=== PATIENT | female | born 1960 ===

== ENCOUNTER 2016-07-14 21:21 | Inpatient (IN) | payer OTHER ==
[~2016-07-14] VITALS: Ht 162.6 cm; Wt 67.8 kg
[2016-07-15] VITALS (12 sets, daily range): BP systolic 94–118; BP diastolic 47–75; PULSE 63–86; RESP 18–20; Ht 162.6 cm; Wt 67.8 kg
[2016-07-15] MEDS ORDERED: NITROGLYCERIN (SL) 0.4 MG TAB SL PRN
[2016-07-15] MEDS ORDERED: morphine 4 MG/ML VIAL IV PRN
[2016-07-15] MEDS ORDERED: morphine 2 MG INJ IV PRN
[2016-07-15 01:27] LABS: CREATINE KINASE 188 IU/L (23-200)
[2016-07-15 01:41] LABS: TROPONIN-I < 0.012 ng/ml (0.00-0.12)
[2016-07-15 07:59] LABS: BASOPHILS % 0.7 % (0.0-2.0); EOSINOPHILS # 0.2 10^3/ul (0.0-0.5); EOSINOPHILS % 3.7 % (0.0-7.0); HEMATOCRIT 38.9 % (37.0-47.0); HEMOGLOBIN 13.1 g/dl (12.0-16.0); LYMPHOCYTES # 2.2 10^3/ul (0.8-2.9); LYMPHOCYTES % 34.8 % (15.0-51.0); MEAN CORPUSCULAR HEMOGLOBIN 32.4 pg (29.0-33.0); MEAN CORPUSCULAR HGB CONC 33.6 g/dl (32.0-37.0); MEAN CORPUSCULAR VOLUME 96.6 fl (82.0-101.0); MEAN PLATELET VOLUME 9.7 fl (7.4-10.4); MONOCYTE # 0.5 10^3/ul (0.3-0.9); MONOCYTES % 7.9 % (0.0-11.0); NEUTROPHIL # 3.4 10^3/ul (1.6-7.5); NEUTROPHILS % 52.9 % (39.0-77.0); PLATELET COUNT 223 10^3/UL (140-440); RED BLOOD COUNT 4.03 10^6/ul (4.20-5.40); RED CELL DISTRIBUTION WIDTH 13.3 % (11.5-14.5); UNCORRECTED WBC 6.4 10^3/ul (4.8-10.8); WHITE BLOOD COUNT 6.4 10^3/ul (4.8-10.8)
[2016-07-15 08:18] LABS: CONDITION 1
[2016-07-15 08:19] LABS: ALBUMIN 3.8 g/dl (3.3-4.9)
[2016-07-15 08:20] LABS: POTASSIUM 4.3 mmol/L (3.5-5.1)
[2016-07-15 08:22] LABS: ALBUMIN/GLOBULIN RATIO 1.26; BILIRUBIN,INDIRECT 0.2 mg/dl (0-1.1); BILIRUBIN,TOTAL 0.2 mg/dl (0.2-1.3); CREATININE 0.75 mg/dl (0.44-1.00); TOTAL PROTEIN 6.8 g/dl (6.1-8.1)
[2016-07-15 08:23] LABS: CALCIUM 9.2 mg/dl (8.4-10.2); CHOL/HDL RATIO 4.6 RATIO
[2016-07-15 08:40] LABS: THYROID STIMULATING HORMONE 7.2 MIU/L (0.465-4.680)
[2016-07-15] MEDS: ENOXAPARIN 40 MG/0.4 ML SYG SC SCH (09:00)
[2016-07-15] MEDS: ASPIRIN 81 MG TAB PO SCH (09:00)
[2016-07-15 09:36] LABS: CREATINE KINASE 158 IU/L (23-200)
[2016-07-15 09:46] LABS: CK-MB 1.06 ng/ml (0.0-2.4)
[2016-07-15 09:51] LABS: TROPONIN-I < 0.012 ng/ml (0.00-0.12)
--- NOTE | 2016-07-15 11:52 | RADRPT ---
PROCEDURE: Carotid ultrasound CLINICAL INDICATION: Syncope, carotid bruits TECHNIQUE: Fuentes scale, color doppler, spectral doppler ultrasound of the bilateral carotid and bairon tebral arteries. This study indirectly references the measurement of the distal ICA diameter as the denominator for s tenosis measurement. Validated velocity measurements with angiographic measurements, velocity criter ia are extrapolated from diameter data as defined by: *Cartoid artery stenosis: fuentes-scale and Doppl er US diagnosis. Society of Radiologists in Ultrasound Consensus Conference. Radiology 2003; 229: 34 0-346. SRU Consensus Conference Criteria for the Diagnosis of Carotid Artery Stenosis* Degree of Stenosis, % ICA PSV, cm/sec Plaque Estimate, % ICA/CCA PSV Ratio Normal <125 None <2.0 <50 <125 <50 <2.0 50 69 125-230 >50 2.0-4.0 >70 but less than near occlusion >230 >50 <4.0 Near occlusion High, low, or undetectable Visible Variable Total occlusion Undetectable Visible, no detectable lumen Not applicable COMPARISON: No prior studies are available for comparison. FINDINGS: Location Right MWH407 cm/sec Prox ICA 98 cm/sec Mid ICA89 cm/sec Dist HCC729 cm/sec ECA75 cm/sec ICA/CCA Left KOF030 cm/sec Prox ICA 94 cm/sec Mid MOU331 cm/sec Dist UHI011 cm/sec ECA84 cm/sec ICA/CCA1.0 Plaque burden: A minimal amount of plaque is present within the visualized portions of both internal carotid arteries however there is no evidence of flow acceleration to suggest a hemodynamically sig nificant stenosis. Antegrade flow is seen within the vertebral arteries bilaterally. IMPRESSION: No evidence of a hemodynamically significant carotid stenosis. RPTAT: AADD .Puma Laboy MD, MD Date Time Electronically viewed and signed by .Puma Laboy MD, on 07/15/2016 11:52 .B/
[2016-07-15] MEDS ORDERED: LORAZEPAM 2 MG INJ IV ONE (13:00)
--- NOTE | 2016-07-15 14:08 | HP ---
DATE OF ADMISSION: 07/14/2016 CHIEF COMPLAINT: Chest pain and shortness of breath. HISTORY OF PRESENT ILLNESS: The patient is a 55-year-old female who history who initially pre sented at [facility] with chief complaint of chest pain. She also reporte d shortness of breath and dry cough. She was transferred here to [facility] for insurance reasons. Chest pain is midsternal and also left side with radiation to the left shoulder and arm. She denied any associated nausea, vomiting or diaphoresis. The first troponin was negative at [place] and EKG did not show any ST-T wave abnormality. REVIEW OF SYSTEMS: ALLERGIES: NO KNOWN DRUG ALLERGIES. FAMILY HISTORY: PHYSICAL EXAMINATION: LABORATORY: First troponin negative. IMPRESSION: 1. Chest pain, rule out . 2. Shortness of breath. 3. ____. 4. Cough. PLAN: 1. Obtain . troponin. To be placed on oxygen, beta marlyn and will provide oxygen ___ __. and obtain an echo. Also, check A1c, lipid panel and TSH. Cardiology consult will be placed as needed. 2. For DVT prophylaxis . 3. Further workup and management per clinical course. Dictated By: BLAISE INIGUEZ/TEA Conf#: [id number] DID#: [id number]
--- NOTE | 2016-07-15 15:07 | PN ---
Date/Time of Note Date/Time of Note DATE: 07/15/16 TIME: 15:02 Assessment/Plan VTE Prophylaxis VTE Prophylaxis Intervention: SCD's Lines/Catheters IV Catheter Type (from [facility]): Saline Lock Urinary Cath still in place: No Assessment/Plan Chief Complaint/Hosp Course Assessment and plan 1. Chest pain. Rule out ACS. Follow-up on so troponins. Check echocardiogram. We 'll get management consultant pending clinical course. 2. Cephalgia. Etiology unknown. Patient does report feeling dizziness and fainting at times. Follow-up with carotid Doppler. Follow-up with CT scan of the head 3. Dyslipidemia. Patient was started on statin medication 4. Suspect hypothyroidism. Follow-up on T3-T4. Disposition and plan: Follow-up head imaging. Follow-up on echocardiogram. Follow-up serial troponins. Continue inpatient monitoring Discussed on of care with Dr. Taylor Problems: Subjective 24 Hr Interval Summary Free Text/Dictation Reports having some chest pain intermittently. reports having moderate headache Exam/Review of Systems Vital Signs Vitals Vital Signs Date Time Temp Pulse Resp B/P Pulse Ox O2 Delivery O2 Flow Rate FiO2 07/15/16 12:17 70 07/15/16 12:00 98.3 18 110/75 94 Intake and Output 07/14/16 07/14/16 07/15/16 15:00 23:00 07:00 Intake Total 100 ml Balance 100 ml Exam General: In mild distress. Reports having some headache Eyes: pupils equal round, Anicteric sclera Neck: Supple nontender, no JVD Cardiac: S1, S2 auscultated, regular rhythm and rate Pulmonary: No coarse rhonchi or breathing auscultated GI: Abdomen soft nontender nondistended, bowel sounds active Extremities: No edema bilateral lower extremities Skin: Clean dry and intact Neurologic: Alert to person place and time and situation Results Result Diagram: 07/15/16 0645 07/15/16 0645 Results 24 hrs Laboratory Tests Test 07/15/16 00:00 07/15/16 06:45 07/15/16 13:50 Creatine Kinase 188 158 Creatine Kinase Index 0.7 0.7 Creatinine Kinase MB (Mass) 1.40 1.06 Troponin I < 0.012 < 0.012 < 0.012 Alanine Aminotransferase (ALT/SGPT) 20 Albumin 3.8 Albumin/Globulin Ratio 1.26 Alkaline Phosphatase 64 Anion Gap 15 Aspartate Amino Transf (AST/SGOT) 26 Basophils # 0.0 Basophils % 0.7 Blood Urea Nitrogen 14 Calcium Level 9.2 Carbon Dioxide Level 28 Chloride Level 103 Cholesterol Level 220 H Cholesterol/HDL Ratio 4.6 Creatinine 0.75 Direct Bilirubin 0.00 Eosinophils # 0.2 Eosinophils % 3.7 Globulin 3.00 Glucose Level 87 HDL Cholesterol 47 Hematocrit 38.9 Hemoglobin 13.1 Indirect Bilirubin 0.2 LDL Cholesterol, Calculated 157 Lymphocytes # 2.2 Lymphocytes % 34.8 Mean Corpuscular Hemoglobin 32.4 Mean Corpuscular Hemoglobin Concent 33.6 Mean Corpuscular Volume 96.6 Mean Platelet Volume 9.7 Monocytes # 0.5 Monocytes % 7.9 Neutrophils # 3.4 Neutrophils % 52.9 Nucleated Red Blood Cells # 0.0 Nucleated Red Blood Cells % 0.0 Platelet Count 223 Potassium Level 4.3 Red Blood Count 4.03 L Red Cell Distribution Width 13.3 Sodium Level 142 Thyroid Stimulating Hormone (TSH) 7.200 H Total Bilirubin 0.2 Total Protein 6.8 Triglycerides Level 82 White Blood Count 6.4 Medications Medications Current Medications Ondansetron HCl (Zofran Inj) 4 mg Q6H PRN IV NAUSEA AND/OR VOMITING; Start at 00:00 Aspirin (Aspirin) 81 mg DAILY PO ; Start 07/15/16 at 09:00 Nitroglycerin (Nitroglycerin (Sl Tab) 0.4 Mg) 1 tab Q5M PRN SL CHEST PAIN; Start 07/15/16 at 00:00 Enoxaparin Sodium (Lovenox) 40 mg DAILY SC ; Start 07/15/16 at 09:00 Acetaminophen/ Butalbital/ Caffeine (Fioricet) 2 tab Q4H PRN PO PAIN; Start at 10:00 Atorvastatin Calcium (Lipitor) 20 mg HS PO ; Start 07/15/16 at 21:00 MARIA ANTONIA BARTHOLOMEW Jul 15, 2016 15:07
--- NOTE | 2016-07-15 16:18 | RADRPT ---
PROCEDURE: CT Head without. CLINICAL INDICATION: Headache with weakness. TECHNIQUE: The study was performed utilizing a multi-slice, multidetector CT scanner. Direct spira l 1 mm axial sections were obtained through the head without the use of intravenous contrast materia l. 1 or more of the following dose reduction techniques were utilized: Automated exposure control, adjustment of the mA and/or kV according to patient's size, iterative reconstruction technique. Co petra and sagittal reformations were obtained. The images were reviewed on a PACS workstation. RADIATION DOSE: CTDIvol: 45.0 mGyDLP: 720.2 mGy-cm COMPARISON: No prior studies are available for comparison. FINDINGS: There is no intracranial hemorrhage, extra-axial fluid collection, mass lesion, midline shift or hyd rocephalus. The ventricles, sulci and cisterns are within normal limits. The white matter is unrem arkable. The thomas-white matter differentiation is preserved. The basal cisterns are patent. The m idline structures are intact. The orbits, calvarium and extracranial soft tissues are normal in barber earance. The visualized paranasal sinuses, mastoid air cells and middle ear cavities are normally ae rated. IMPRESSION: 1. No acute intracranial abnormality. No intracranial hemorrhage, extra-axial fluid collection, ma ss lesion or hydrocephalous. RPTAT: HGAS .Sanjiv Verdugo MD, MD Date Time Electronically viewed and signed by .Sanjiv Verdugo MD, MD on 07/15/2016 16:18 .S/
[2016-07-15 17:22] LABS: FREE T3 3.77 pg/ml (2.77-5.27)
[2016-07-15 17:36] LABS: TRIIODOTHYRONINE 1.13 ng/ml (0.97-1.69)
[2016-07-15] MEDS: ATORVASTATIN 20 MG TAB PO SCH (20:05)
[2016-07-15] MEDS: LORAZEPAM 2 MG INJ IV PRN (23:35)
[2016-07-15] MEDS: ACET/BUTAL/CAFF TAB PO PRN (23:35)
[2016-07-16] VITALS (11 sets, daily range): BP systolic 99–135; BP diastolic 57–84; PULSE 62–94; RESP 16–20
[2016-07-16 06:50] LABS: POTASSIUM 4.4 mmol/L (3.5-5.1)
[2016-07-16 06:52] LABS: BASOPHILS % 0.5 % (0.0-2.0); CREATININE 0.75 mg/dl (0.44-1.00); EOSINOPHILS # 0.2 10^3/ul (0.0-0.5); EOSINOPHILS % 2.7 % (0.0-7.0); HEMATOCRIT 40.2 % (37.0-47.0); HEMOGLOBIN 13.4 g/dl (12.0-16.0); LYMPHOCYTES # 2.1 10^3/ul (0.8-2.9); LYMPHOCYTES % 30.8 % (15.0-51.0); MEAN CORPUSCULAR HEMOGLOBIN 32.1 pg (29.0-33.0); MEAN CORPUSCULAR HGB CONC 33.2 g/dl (32.0-37.0); MEAN CORPUSCULAR VOLUME 96.5 fl (82.0-101.0); MEAN PLATELET VOLUME 10.6 fl (7.4-10.4); MONOCYTE # 0.5 10^3/ul (0.3-0.9); NEUTROPHIL # 4.1 10^3/ul (1.6-7.5); PLATELET COUNT 221 10^3/UL (140-440); RED BLOOD COUNT 4.17 10^6/ul (4.20-5.40); RED CELL DISTRIBUTION WIDTH 12.8 % (11.5-14.5); WHITE BLOOD COUNT 6.9 10^3/ul (4.8-10.8)
[2016-07-16 06:53] LABS: CALCIUM 9.2 mg/dl (8.4-10.2)
[2016-07-16 06:54] LABS: CONDITION 1; LH ANALYZER COMMENTS 1; SUSPECT 1
[2016-07-16] MEDS: ENOXAPARIN 40 MG/0.4 ML SYG SC SCH (09:00)
[2016-07-16] MEDS: ASPIRIN 81 MG TAB PO SCH (09:00)
--- NOTE | 2016-07-16 10:24 | PN ---
Date/Time of Note Date/Time of Note DATE: 07/16/16 TIME: 10:21 Assessment/Plan VTE Prophylaxis VTE Prophylaxis Intervention: LMWH Lines/Catheters IV C[facility]ter Type (from [facility]): Saline Lock Urinary Cath still in place: No Assessment/Plan Chief Complaint/Hosp Course Assessment and plan 1. Chest pain. Rule out ACS. serial troponins negative, echo pending. We'll get feed manager pending clinical course. 2. Cephalgia. CT scan of head negative for acute intracranial pathology. suspect migraine. trial sumatriptan. 3. Dyslipidemia. Patient was started on statin medication Disposition and plan: echo pending. follow up result. cont with analgesics for headache. patient reports financial home issue. family caseworker to follow Discussed on of care with Dr. Taylor Problems: Subjective 24 Hr Interval Summary Free Text/Dictation still reports severe headaches Exam/Review of Systems Vital Signs Vitals Vital Signs Date Time Temp Pulse Resp B/P Pulse Ox O2 Delivery O2 Flow Rate FiO2 07/16/16 08:55 62 07/16/16 08:00 97.8 20 135/73 100 High Flow Intake and Output 07/15/16 07/15/16 07/16/16 15:00 23:00 07:00 Intake Total 950 ml Balance 950 ml Exam General: In mild distress. Reports having some headache Eyes: pupils equal round, Anicteric sclera Neck: Supple nontender, no JVD Cardiac: S1, S2 auscultated, regular rhythm and rate Pulmonary: No coarse rhonchi or breathing auscultated GI: Abdomen soft nontender nondistended, bowel sounds active Extremities: No edema bilateral lower extremities Skin: Clean dry and intact Neurologic: Alert to person place and time and situation Results Result Diagram: 07/16/16 0540 07/16/16 0540 Results 24 hrs Laboratory Tests Test 07/15/16 13:50 07/16/16 05:40 Troponin I < 0.012 Anion Gap 9 # Basophils # 0.0 Basophils % 0.5 Blood Morphology Comment Blood Urea Nitrogen 15 Calcium Level 9.2 Carbon Dioxide Level 31 Chloride Level 105 Creatinine 0.75 Eosinophils # 0.2 Eosinophils % 2.7 Glucose Level 80 Hematocrit 40.2 Hemoglobin 13.4 Lymphocytes # 2.1 Lymphocytes % 30.8 Mean Corpuscular Hemoglobin 32.1 Mean Corpuscular Hemoglobin Concent 33.2 Mean Corpuscular Volume 96.5 Mean Platelet Volume 10.6 H Monocytes # 0.5 Monocytes % 7.0 Neutrophils # 4.1 Neutrophils % 59.0 Nucleated Red Blood Cells # 0.0 Nucleated Red Blood Cells % 0.0 Platelet Count 221 Potassium Level 4.4 Red Blood Count 4.17 L Red Cell Distribution Width 12.8 Sodium Level 141 White Blood Count 6.9 Medications Medications Current Medications Ondansetron HCl (Zofran Inj) 4 mg Q6H PRN IV NAUSEA AND/OR VOMITING; Start at 00:00 Aspirin (Aspirin) 81 mg DAILY PO ; Start 07/15/16 at 09:00 Nitroglycerin (Nitroglycerin (Sl Tab) 0.4 Mg) 1 tab Q5M PRN SL CHEST PAIN; Start 07/15/16 at 00:00 Enoxaparin Sodium (Lovenox) 40 mg DAILY SC ; Start 07/15/16 at 09:00 Acetaminophen/ Butalbital/ Caffeine (Fioricet) 2 tab Q4H PRN PO PAIN Last administered on 07/15/16 23:35; Admin Dose 2 TAB; Start 07/15/16 at 10:00 Atorvastatin Calcium (Lipitor) 20 mg HS PO Last administered on 07/15/16 20:05 ; Admin Dose 20 MG; Start 07/15/16 at 21:00 Lorazepam (Ativan) 1 mg Q3 PRN IV ANXIETY Last administered on 07/15/16 23:35 ; Admin Dose 1 MG; Start 07/15/16 at 23:30 Zolpidem Tartrate (Ambien) 10 mg HS PRN PO INSOMNIA; Start 07/15/16 at 23:30 MARIA ANTONIA BARTHOLOMEW Jul 16, 2016 10:24
[2016-07-16] MEDS: SUMATRIPTAN 6 MG/0.5 ML INJ SC ONE ×2 (12:00→16:11)
--- NOTE | 2016-07-16 18:19 | RADRPT ---
Echocardiogram Report Patient Name: DELFINO DEL CID Gender: Female Date: 1960 Study Date: 15-Jul-2016 Log Washer: Kimmie Blevins DARÍO Location: 525 Ref. Physician: MARIA ANTONIA BARTHOLOMEW Quality: Good Procedures: Transthoracic echocardiogram with complete 2D, M-Mode, and doppler examination. Indications: Chest Pain. 2D/M Mode Doppler Measurement Value Normal Ranges Measurement Value Normal Ranges LVIDd 2D 4.6 3.5 - 5.6 cm AV Peak [place] 1.5 m/sec LVIDs 2D 3.1 2.1 - 4.1 cm AV Peak PG 8.6 mmHg LVPWd 2D 0.8 0.6 - 1.1 cm LVOT Peak Carmelo 0.8 m/sec IVSd 2D 0.7 0.6 - 1.1 cm LVOT Peak PG 2.8 mmHg AoR Diam 2D 2.9 2.0 - 3.7 cm MV E Peak Carmelo 0.9 m/sec EDV 2D 99.8 cm3 MV A Peak [place] 0.5 m/sec ESV 2D 29.5 cm3 MV E/A 1.6 LA Dimen 2D 2.6 2.3 - 4.0 cm MV Decel Time 212 msec MV Decel [place] 4 MV E/A 1.6 TR Peak Carmelo 2.3 m/sec TR Peak PG 20.3 mmHg RVSP 23.0 mmHg Findings Left Ventricle: Normal left ventricular systolic function. Normal left ventricular cavity size. Normal left ventricular wall thickness. Ejection fraction is visually estimated at 5560 %. Tissue Doppler/Mitral Doppler indices are within normal limits. Right Ventricle: Normal right ventricular size. Normal right ventricular systolic function. Left Atrium: The left atrium is normal in size. Right Atrium: The right atrium is normal in size. Mitral Valve: Normal appearance and function of the mitral valve with trace physiologic regurgitation. Aortic Valve: Normal appearance of the aortic valve. No significant aortic stenosis or insufficiency. Tricuspid Valve: Normal appearance of the tricuspid valve. Estimated peak PA systolic pressure 23 mmHg. There is mild tricuspid regurgitation. Pulmonic Valve: Normal pulmonic valve appearance. Pericardium: Normal pericardium with no significant pericardial effusion. Aorta: Normal aortic root. IVC: Normal size and normal respiratory collapse consistent with normal right atrial pressure. Conclusions 1.The left ventricle is normal in size and systolic function. 2.Estimated left ventricular ejection fraction of 55-60%. Electronically Signed By: Speedy Mosquera 16-Jul-2016 18:18:47 -0800 Patient Name: DELFINO DEL CID Study Date: 15-Jul-2016 [id number]
[2016-07-16] MEDS: ACET/BUTAL/CAFF TAB PO PRN (18:21)
[2016-07-16] MEDS: ATORVASTATIN 20 MG TAB PO SCH (21:43)
[2016-07-17] VITALS (11 sets, daily range): BP systolic 103–112; BP diastolic 62–70; PULSE 60–103; RESP 17–20
[2016-07-17] MEDS: ONDANSETRON 4 MG INJ IV PRN ×2 (00:29→21:23)
[2016-07-17] MEDS: ZOLPIDEM 5 MG TAB PO PRN (00:32)
[2016-07-17 07:00] LABS: POTASSIUM 4.2 mmol/L (3.5-5.1)
[2016-07-17 07:03] LABS: CREATININE 0.77 mg/dl (0.44-1.00)
[2016-07-17 07:04] LABS: CALCIUM 9.3 mg/dl (8.4-10.2)
[2016-07-17 07:05] LABS: BASOPHILS % 0.6 % (0.0-2.0); EOSINOPHILS # 0.2 10^3/ul (0.0-0.5); EOSINOPHILS % 3.2 % (0.0-7.0); HEMATOCRIT 38.9 % (37.0-47.0); HEMOGLOBIN 13.3 g/dl (12.0-16.0); LYMPHOCYTES # 2.2 10^3/ul (0.8-2.9); LYMPHOCYTES % 38.7 % (15.0-51.0); MEAN CORPUSCULAR HEMOGLOBIN 32.7 pg (29.0-33.0); MEAN CORPUSCULAR HGB CONC 34.1 g/dl (32.0-37.0); MEAN PLATELET VOLUME 10.1 fl (7.4-10.4); MONOCYTE # 0.4 10^3/ul (0.3-0.9); MONOCYTES % 7.7 % (0.0-11.0); NEUTROPHIL # 2.8 10^3/ul (1.6-7.5); NEUTROPHILS % 49.8 % (39.0-77.0); PLATELET COUNT 207 10^3/UL (140-440); RED BLOOD COUNT 4.05 10^6/ul (4.20-5.40); UNCORRECTED WBC 5.7 10^3/ul (4.8-10.8); WHITE BLOOD COUNT 5.7 10^3/ul (4.8-10.8)
[2016-07-17 07:31] LABS: CONDITION 1
[2016-07-17] MEDS: ASPIRIN 81 MG TAB PO SCH (09:22)
[2016-07-17] MEDS: ENOXAPARIN 40 MG/0.4 ML SYG SC SCH (09:28)
[2016-07-17] MEDS: ACET/BUTAL/CAFF TAB PO PRN (12:16)
--- NOTE | 2016-07-17 15:09 | PN ---
Date/Time of Note Date/Time of Note DATE: 07/17/16 TIME: 15:07 Assessment/Plan VTE Prophylaxis VTE Prophylaxis Intervention: LMWH Lines/Catheters IV [facility] (from [facility] Saline Lock Urinary Cath still in place: No Assessment/Plan Chief Complaint/Hosp Course Assessment and plan 1. Chest pain. Echocardiogram with preserved left ventricle ejection fraction. So troponins negative. Patient still with intermittent chest pain. Blow Pit Helper follow. 2. Cephalgia. CT scan of head negative for acute intracranial pathology. Continue with analgesics. If worse we will consider MRI 3. Dyslipidemia. Patient was started on statin medication Disposition and plan: Blow Pit Helper follow for intermittent chest pain. Continue with analgesics for headache. Discharge him medically stable and cleared by consultants Discussed on of care with Dr. Taylor Problems: Subjective 24 Hr Interval Summary Free Text/Dictation Social report having some headache. Has intermittent chest pain. Exam/Review of Systems Vital Signs Vitals Vital Signs Date Time Temp Pulse Resp B/P Pulse Ox O2 Delivery O2 Flow Rate FiO2 07/17/16 12:13 103 07/17/16 12:06 97.5 17 112/62 96 07/16/16 16:00 Room Air Intake and Output 07/16/16 07/16/16 07/17/16 15:00 23:00 07:00 Intake Total 550 ml Balance 550 ml Exam General: No apparent distress at this time. Eyes: pupils equal round, Anicteric sclera Neck: Supple nontender, no JVD Cardiac: S1, S2 auscultated, regular rhythm and rate Pulmonary: No coarse rhonchi or breathing auscultated GI: Abdomen soft nontender nondistended, bowel sounds active Extremities: No edema bilateral lower extremities Skin: Clean dry and intact Neurologic: Alert to person place and time and situation Results Result Diagram: 07/17/16 0552 07/17/16 0521 Results 24 hrs Laboratory Tests Test 07/17/16 05:21 07/17/16 05:52 Anion Gap 14 Blood Urea Nitrogen 14 Calcium Level 9.3 Carbon Dioxide Level 27 Chloride Level 105 Creatinine 0.77 Glucose Level 85 Potassium Level 4.2 Sodium Level 142 Basophils # 0.0 Basophils % 0.6 Eosinophils # 0.2 Eosinophils % 3.2 Hematocrit 38.9 Hemoglobin 13.3 Lymphocytes # 2.2 Lymphocytes % 38.7 Mean Corpuscular Hemoglobin 32.7 Mean Corpuscular Hemoglobin Concent 34.1 Mean Corpuscular Volume 96.0 Mean Platelet Volume 10.1 Monocytes # 0.4 Monocytes % 7.7 Neutrophils # 2.8 Neutrophils % 49.8 Nucleated Red Blood Cells # 0.0 Nucleated Red Blood Cells % 0.0 Platelet Count 207 Red Blood Count 4.05 L Red Cell Distribution Width 13.0 White Blood Count 5.7 Medications Medications Current Medications Ondansetron HCl (Zofran Inj) 4 mg Q6H PRN IV NAUSEA AND/OR VOMITING Last administered on 07/17/16 00:29; Admin Dose 4 MG; Start 07/15/16 at 00:00 Aspirin (Aspirin) 81 mg DAILY PO Last administered on 07/17/16 09:22; Admin Dose 81 MG; Start 07/15/16 at 09:00 Nitroglycerin (Nitroglycerin (Sl Tab) 0.4 Mg) 1 tab Q5M PRN SL CHEST PAIN; Start 07/15/16 at 00:00 Enoxaparin Sodium (Lovenox) 40 mg DAILY SC Last administered on 07/17/16 09:28 ; Admin Dose 40 MG; Start 07/15/16 at 09:00 Acetaminophen/ Butalbital/ Caffeine (Fioricet) 2 tab Q4H PRN PO PAIN Last administered on 07/17/16 12:16; Admin Dose 2 TAB; Start 07/15/16 at 10:00 Atorvastatin Calcium (Lipitor) 20 mg HS PO Last administered on 07/16/16 21:43 ; Admin Dose 20 MG; Start 07/15/16 at 21:00 Lorazepam (Ativan) 1 mg Q3 PRN IV ANXIETY Last administered on 07/15/16 23:35 ; Admin Dose 1 MG; Start 07/15/16 at 23:30 Zolpidem Tartrate (Ambien) 10 mg HS PRN PO INSOMNIA Last administered on 00:32; Admin Dose 10 MG; Start 07/15/16 at 23:30 MARIA ANTONIA BARTHOLOMEW Jul 17, 2016 15:09
[2016-07-17] MEDS ORDERED: ACET/BUTAL/CAFF TAB PO PRN (17:30)
[2016-07-17] MEDS ORDERED: KETOROLAC 30 MG INJ IV PRN (17:30)
[2016-07-17] MEDS: ATORVASTATIN 20 MG TAB PO SCH (20:22)
[2016-07-18] VITALS (11 sets, daily range): BP systolic 92–118; BP diastolic 46–69; PULSE 58–80; RESP 18–20
[2016-07-18] MEDS: ZOLPIDEM 5 MG TAB PO PRN
[2016-07-18] MEDS: SOD CHLORIDE 0.9% 1,000 ML IV SCH ×2 (00:01→10:06)
[2016-07-18] MEDS: ASPIRIN 81 MG TAB PO SCH (08:56)
[2016-07-18] MEDS: ENOXAPARIN 40 MG/0.4 ML SYG SC SCH (09:40)
[2016-07-18 09:51] LABS: BASOPHILS % 0.5 % (0.0-2.0); EOSINOPHILS # 0.2 10^3/ul (0.0-0.5); HEMATOCRIT 38.3 % (37.0-47.0); HEMOGLOBIN 12.8 g/dl (12.0-16.0); LYMPHOCYTES # 1.7 10^3/ul (0.8-2.9); LYMPHOCYTES % 31.3 % (15.0-51.0); MEAN CORPUSCULAR HEMOGLOBIN 32.2 pg (29.0-33.0); MEAN CORPUSCULAR HGB CONC 33.5 g/dl (32.0-37.0); MEAN CORPUSCULAR VOLUME 96.1 fl (82.0-101.0); MEAN PLATELET VOLUME 10.3 fl (7.4-10.4); MONOCYTE # 0.4 10^3/ul (0.3-0.9); MONOCYTES % 7.6 % (0.0-11.0); NEUTROPHIL # 3.2 10^3/ul (1.6-7.5); NEUTROPHILS % 57.6 % (39.0-77.0); PLATELET COUNT 206 10^3/UL (140-440); RED BLOOD COUNT 3.99 10^6/ul (4.20-5.40); RED CELL DISTRIBUTION WIDTH 13.3 % (11.5-14.5); UNCORRECTED WBC 5.6 10^3/ul (4.8-10.8); WHITE BLOOD COUNT 5.6 10^3/ul (4.8-10.8)
[2016-07-18 09:57] LABS: POTASSIUM 4.6 mmol/L (3.5-5.1)
[2016-07-18 09:59] LABS: CREATININE 0.81 mg/dl (0.44-1.00)
[2016-07-18 10:00] LABS: CALCIUM 9.1 mg/dl (8.4-10.2); CONDITION 1
[2016-07-18] MEDS ORDERED: SUMATRIPTAN 6 MG/0.5 ML INJ SC ONE (10:30)
--- NOTE | 2016-07-18 10:30 | PN ---
Date/Time of Note Date/Time of Note DATE: 07/18/16 TIME: 10:27 Assessment/Plan VTE Prophylaxis VTE Prophylaxis Intervention: LMWH, SCD's Lines/Catheters IV Catheter Type (from [facility]): Saline Lock Urinary Cath still in place: No Assessment/Plan Chief Complaint/Hosp Course Assessment and plan 1. Chest pain. Echocardiogram with preserved left ventricle ejection fraction. troponins negative. Patient still with intermittent chest pain. Submarine Cable Equipment Technician following. plan for stress test 2. Cephalgia. CT scan of head negative for acute intracranial pathology. Continue with analgesics. Still with worse headache. Will check MRI of the brain 3. Dyslipidemia. Patient was started on statin medication Disposition and plan: Plan for stress test. Will check MRI of the brain. Will follow up Discussed on of care with Dr. Collier Problems: Subjective 24 Hr Interval Summary Free Text/Dictation still reports intermittent chest pains and headache Exam/Review of Systems Vital Signs Vitals Vital Signs Date Time Temp Pulse Resp B/P Pulse Ox O2 Delivery O2 Flow Rate FiO2 07/18/16 09:38 61 07/18/16 08:08 98.2 18 92/46 98 07/16/16 16:00 Room Air Intake and Output 07/17/16 07/17/16 07/18/16 15:00 23:00 07:00 Intake Total 700 ml 1275 ml Balance 700 ml 1275 ml Exam General: anxious, reports headache Eyes: pupils equal round, Anicteric sclera Neck: Supple nontender, no JVD Cardiac: S1, S2 auscultated, regular rhythm and rate Pulmonary: No coarse rhonchi or breathing auscultated GI: Abdomen soft nontender nondistended, bowel sounds active Extremities: No edema bilateral lower extremities Skin: Clean dry and intact Neurologic: Alert to person place and time and situation Results Result Diagram: 07/18/16 0900 07/18/16 0900 Results 24 hrs Laboratory Tests Test 07/18/16 09:00 Anion Gap 14 Basophils # 0.0 Basophils % 0.5 Blood Urea Nitrogen 13 Calcium Level 9.1 Carbon Dioxide Level 29 Chloride Level 107 Creatinine 0.81 Eosinophils # 0.2 Eosinophils % 3.0 Glucose Level 83 Hematocrit 38.3 Hemoglobin 12.8 Lymphocytes # 1.7 Lymphocytes % 31.3 Mean Corpuscular Hemoglobin 32.2 Mean Corpuscular Hemoglobin Concent 33.5 Mean Corpuscular Volume 96.1 Mean Platelet Volume 10.3 Monocytes # 0.4 Monocytes % 7.6 Neutrophils # 3.2 Neutrophils % 57.6 Nucleated Red Blood Cells # 0.0 Nucleated Red Blood Cells % 0.0 Platelet Count 206 Potassium Level 4.6 Red Blood Count 3.99 L Red Cell Distribution Width 13.3 Sodium Level 145 H White Blood Count 5.6 Medications Medications Current Medications Ondansetron HCl (Zofran Inj) 4 mg Q6H PRN IV NAUSEA AND/OR VOMITING Last administered on 07/17/16 21:23; Admin Dose 4 MG; Start 07/15/16 at 00:00 Aspirin (Aspirin) 81 mg DAILY PO Last administered on 07/18/16 08:56; Admin Dose 81 MG; Start 07/15/16 at 09:00 Nitroglycerin (Nitroglycerin (Sl Tab) 0.4 Mg) 1 tab Q5M PRN SL CHEST PAIN; Start 07/15/16 at 00:00 Enoxaparin Sodium (Lovenox) 40 mg DAILY SC Last administered on 07/18/16 09:40 ; Admin Dose 40 MG; Start 07/15/16 at 09:00 Atorvastatin Calcium (Lipitor) 20 mg HS PO Last administered on 07/17/16 20:22 ; Admin Dose 20 MG; Start 07/15/16 at 21:00 Lorazepam (Ativan) 1 mg Q3 PRN IV ANXIETY Last administered on 07/15/16 23:35 ; Admin Dose 1 MG; Start 07/15/16 at 23:30 Zolpidem Tartrate (Ambien) 10 mg HS PRN PO INSOMNIA Last administered on 00:00; Admin Dose 10 MG; Start 07/15/16 at 23:30 Regadenoson 0.4 mg 0.4 mg ONCE ONCE IV ; Start 07/18/16 at 14:00; Stop at 14:01 Sodium Chloride (NS) 1,000 ml @ 100 mls/hr Q10H IV Last administered on 10:06; Admin Dose 100 MLS/HR; Start 07/18/16 at 00:00 Acetaminophen/ Butalbital/ Caffeine (Fioricet) 2 tab Q4H PRN PO PAIN Last administered on 07/17/16 20:29; Admin Dose 2 TAB; Start 07/17/16 at 17:30; Status Future Hold Ketorolac Tromethamine (Toradol) 30 mg Q6H PRN IV PAIN; Start 07/17/16 at 17:30 ; Stop 07/20/16 at 17:29 Senna (Senokot) 2 tab DAILY PRN PO CONSTIPATION Last administered on 07/18/16 00:00; Admin Dose 2 TAB; Start 07/17/16 at 23:30 MARIA ANTONIA BARTHOLOMEW Jul 18, 2016 10:30
[2016-07-18] MEDS: ONDANSETRON 4 MG INJ IV PRN (11:45)
[2016-07-18] MEDS ORDERED: REGADENOSON 0.4 MG/5 ML SYG ONE (13:20)
[2016-07-18] MEDS ORDERED: REGADENOSON 0.4 MG/5 ML SYG IV ONE (14:00)
--- NOTE | 2016-07-18 14:17 | CONS ---
Date/Time of Note Date/Time of Note DATE: 07/18/16 TIME: 14:11 Assessment/Plan Assessment/Plan Chief Complaint/Hosp Course Assessment: Atypical chest pain - ruled out for myocardial infarction Dyslipidemia Headache Recommendations: -no sustained arrhythmias on telemetry -echocardiogram showed normal LVEF 55-60% -follow up Lexiscan SPECT results - if normal, no additional cardiac work up recommended -continue atorvastatin 20mg daily -headache work up and management per primary team Problems: Consultation Date/Type/Reason Admit Date/Time Jul 14, 2016 at 23:06 Type of Consultation: Cardiology Reason for Consultation chest pain Hx of Present Illness The patient is a 55 year-old female who initially presented to [facility] with chest pain. She was transferred to [facility] for further evaluation due to her health insurance coverage. She reports an almost constant chest tightness since March 2016, with associated palpitations and shortness of breath. She also describes an intermittent sharp chest pain involving the left chest with radiation to the left shoulder. Her symptoms are not related to exertion. Serial troponins have been negative. She also complaints of headache. Head CT did not show any acute abnormalities. 14 point review of systems negative other than per HPI. Past Medical History Medical History: no pertinent history Past Surgical History Caesarian section Surgery for ectopic Left breast lumpectomy Bilateral breast implants Family History Significant Family History: diabetes, seizures Social History Alcohol Use: none Smoking Status: Never smoker Drug Use: none Exam/Review of Systems Vital Signs Vitals Vital Signs Date Time Temp Pulse Resp B/P Pulse Ox O2 Delivery O2 Flow Rate FiO2 07/18/16 14:07 58 07/18/16 12:40 98.0 18 112/69 98 07/16/16 16:00 Room Air Intake and Output 07/17/16 07/17/16 07/18/16 15:00 23:00 07:00 Intake Total 700 ml 1275 ml Balance 700 ml 1275 ml Exam Constitutional: alert, well developed Psych: anxiety Head: atraumatic, normocephalic Eyes: nl conjunctiva, nl lids ENMT: nl external ears & nose, nl nasal mucosa & septum Neck: non-tender, supple, No jvd Respiratory: clear to auscultation, normal air movement Cardiovascular: regular rate and rhythm, No murmurs/extra sounds Gastrointestinal: non-tender, soft Musculoskeletal: nl extremities to inspection Extremities: No clubbing, No cyanosis, No edema Neurological: nl mental status, nl speech Results Result Diagram: 07/18/16 0900 07/18/16 0900 Results 24 hrs Laboratory Tests Test 07/18/16 09:00 Anion Gap 14 Basophils # 0.0 Basophils % 0.5 Blood Urea Nitrogen 13 Calcium Level 9.1 Carbon Dioxide Level 29 Chloride Level 107 Creatinine 0.81 Eosinophils # 0.2 Eosinophils % 3.0 Glucose Level 83 Hematocrit 38.3 Hemoglobin 12.8 Lymphocytes # 1.7 Lymphocytes % 31.3 Mean Corpuscular Hemoglobin 32.2 Mean Corpuscular Hemoglobin Concent 33.5 Mean Corpuscular Volume 96.1 Mean Platelet Volume 10.3 Monocytes # 0.4 Monocytes % 7.6 Neutrophils # 3.2 Neutrophils % 57.6 Nucleated Red Blood Cells # 0.0 Nucleated Red Blood Cells % 0.0 Platelet Count 206 Potassium Level 4.6 Red Blood Count 3.99 L Red Cell Distribution Width 13.3 Sodium Level 145 H White Blood Count 5.6 Medications Medications Current Medications Ondansetron HCl (Zofran Inj) 4 mg Q6H PRN IV NAUSEA AND/OR VOMITING Last administered on 07/18/16 11:45; Admin Dose 4 MG; Start 07/15/16 at 00:00 Aspirin (Aspirin) 81 mg DAILY PO Last administered on 07/18/16 08:56; Admin Dose 81 MG; Start 07/15/16 at 09:00 Nitroglycerin (Nitroglycerin (Sl Tab) 0.4 Mg) 1 tab Q5M PRN SL CHEST PAIN; Start 07/15/16 at 00:00 Enoxaparin Sodium (Lovenox) 40 mg DAILY SC Last administered on 07/18/16 09:40 ; Admin Dose 40 MG; Start 07/15/16 at 09:00 Atorvastatin Calcium (Lipitor) 20 mg HS PO Last administered on 07/17/16 20:22 ; Admin Dose 20 MG; Start 07/15/16 at 21:00 Lorazepam (Ativan) 1 mg Q3 PRN IV ANXIETY Last administered on 07/15/16 23:35 ; Admin Dose 1 MG; Start 07/15/16 at 23:30 Zolpidem Tartrate 10 mg 10 mg HS PRN PO INSOMNIA Last administered on 00:00; Admin Dose 10 MG; Start 07/15/16 at 23:30 Sodium Chloride (NS) 1,000 ml @ 100 mls/hr Q10H IV Last administered on 10:06; Admin Dose 100 MLS/HR; Start 07/18/16 at 00:00 Acetaminophen/ Butalbital/ Caffeine (Fioricet) 2 tab Q4H PRN PO PAIN Last administered on 07/17/16 20:29; Admin Dose 2 TAB; Start 07/17/16 at 17:30; Status Future Hold Ketorolac Tromethamine (Toradol) 30 mg Q6H PRN IV PAIN; Start 07/17/16 at 17:30 ; Stop 07/20/16 at 17:29 Senna (Senokot) 2 tab DAILY PRN PO CONSTIPATION Last administered on 07/18/16 00:00; Admin Dose 2 TAB; Start 07/17/16 at 23:30 ACE CARLISLE MD Jul 18, 2016 14:17
[2016-07-18] MEDS: LORAZEPAM 2 MG INJ IV PRN (16:33)
--- NOTE | 2016-07-18 17:26 | RADRPT ---
PROCEDURE: MRI Brain without and with contrast. CLINICAL INDICATION: Headache. TECHNIQUE: An MRI of the brain was performed utilizing the following sequences: Sagittal T1-weigh katlin, axial T2-weighted, axial FLAIR, axial T1, coronal GRE axial diffusion-weighted with ADC mapping . Following the uneventful administration of 10 cc Magnevist, postcontrast axial and coronal T1-weig hted images were obtained. Images were viewed on a PACS workstation. COMPARISON: No prior studies are available for comparison. FINDINGS: No diffusion weighted abnormalities are seen to suggest the presence of acute ischemia or recent inf arct. There is no intracranial hemorrhage, mass effect, or midline shift. No extra-axial fluid col lection is seen. The ventricles and sulci are age-appropriate. There are mild scattered foci of T2 and FLAIR hyperintensity in the deep, and subcortical white shivani er, which are nonspecific in etiology but likely reflect chronic small vessel ischemic changes. The gradient echo images reveal no areas of susceptibility artifact to suggest blood degradation produc ts or abnormal calcification. No abnormal intraparenchymal, meningeal or ependymal enhancement is s een. No abnormal intracranial vascular flow voids are noted. The pituitary and sella reveal no abnormali ty. The suprasellar cistern is clear. The visualized paranasal sinuses are clear. The mastoid air cells are clear. IMPRESSION: 1. No acute intracranial hemorrhage, infarction or mass. No intracranial enhancing abnormality. 2. Mild nonspecific foci of white matter signal abnormality which likely represent chronic small ve ssel ischemic changes. RPTAT: AA .Mina Ibanez MD, MD Date Time Electronically viewed and signed by .Mina Ibanez MD, MD on 07/18/2016 17:25 .N/
--- NOTE | 2016-07-18 17:33 | RADRPT ---
PROCEDURE: Nuclear medicine myocardial perfusion scan CLINICAL INDICATION: Chest pain TECHNIQUE: 28.0 mCi of technetium 99m Cardiolite was administered for the stress study. 9.4 mCi o f technetium 99m Cardiolite was administered for the resting study. The patient was stressed with 0. 4 mg of Lexiscan. Images were reviewed in the short axis, vertical long axis, and horizontal long a xis views. Wall motion was assessed and ejection fraction was calculated as well. Images were revie wed on a high-resolution PACS workstation. COMPARISON: None available FINDINGS: Left ventricular size is within normal limits. There is significant soft tissue and bowel attenuati on artifact. The stress tomographic images demonstrate a normal pattern of perfusion. Breast atten uation artifact is seen along the distal anteroseptal wall. The resting tomographic images demonstr ate a similar pattern. Again, breast attenuation artifact is identified. There is no evidence for reversible ischemia. Wall motion is normal. The ejection fraction is calculated at 62%. IMPRESSION: 1. Negative myocardial perfusion scan. 2. There is no evidence for reversible ischemia. 3. Significant breast attenuation artifact along the distal anteroseptal wall. 4. Limited study due to significant attenuation artifact. 5. Normal wall motion with normal ejection fraction of 62%. RPTAT: HMJB .Velasquez Minor MD, Date Time Electronically viewed and signed by .Velasquez Minor MD, MD on 07/18/2016 17:33 .B/
--- NOTE | 2016-07-18 18:54 | CARRPT ---
DATE OF PROCEDURE: 07/18/2016 PROCEDURE PERFORMED: Lexiscan stress SPECT. INDICATIONS FOR PROCEDURE: Chest pain. FINDINGS: Resting heart rate 60 beats per minute. Maximum heart rate 108 beats per minute. Resting blood pressure 121/66. Maximum blood pressure 122/ 71. Resting EKG normal sinus rhythm with normal EKG. Stress EKG, normal sinus rhythm, no ischemic ST segment or T wave changes. Isolated PVC. CONCLUSIONS: Normal EKG results of Lexiscan stress test. Imaging results to be reported separately. Dictated By: ACE CARLISLE MD SC/TEA Conf#: [id number] DID#: [id number] MTDD
[2016-07-18] MEDS: ATORVASTATIN 20 MG TAB PO SCH (20:46)
[2016-07-18] MEDS: SENNA TAB PO PRN ×2 (20:46)
[2016-07-19] VITALS (11 sets, daily range): BP systolic 107–123; BP diastolic 61–73; PULSE 59–80; RESP 16–20
[2016-07-19] MEDS: ASPIRIN 81 MG TAB PO SCH (09:22)
[2016-07-19] MEDS: ENOXAPARIN 40 MG/0.4 ML SYG SC SCH (09:35)
--- NOTE | 2016-07-19 10:57 | PN ---
Date/Time of Note Date/Time of Note DATE: 07/19/16 TIME: 10:56 Assessment/Plan VTE Prophylaxis VTE Prophylaxis Intervention: SCD's Lines/Catheters IV [facility] Saline Lock Urinary Cath still in place: No Assessment/Plan Assessment/Plan 1. Chest pain. Echocardiogram with preserved left ventricle ejection fraction. troponins negative. Patient still with intermittent chest pain. [employer] following. plan for stress test complicated migraine 2. Cephalgia. CT scan of head negative for acute intracranial pathology. Continue with analgesics. Still with worse headache. Will check MRI of the brain 3. Dyslipidemia. Patient was started on statin medication MRI brain negative, lactulsoe for constipation Subjective 24 Hr Interval Summary Free Text/Dictation c/o headache, constipation Exam/Review of Systems Vital Signs Vitals Vital Signs Date Time Temp Pulse Resp B/P Pulse Ox O2 Delivery O2 Flow Rate FiO2 07/19/16 08:49 59 07/19/16 07:33 98.6 18 110/62 98 07/16/16 16:00 Room Air Intake and Output 07/18/16 07/18/16 07/19/16 15:00 23:00 07:00 Intake Total 720 ml 700 ml Output Total 3 ml Balance 717 ml 700 ml Exam Constitutional: alert Psych: no complaints Head: normocephalic Eyes: nl conjunctiva ENMT: nl external ears & nose Neck: supple Respiratory: clear to auscultation Gastrointestinal: soft Results Result Diagram: 07/18/1689907/18/16 0900 Medications Medications Current Medications Ondansetron HCl (Zofran Inj) 4 mg Q6H PRN IV NAUSEA AND/OR VOMITING Last administered on 07/18/16 11:45; Admin Dose 4 MG; Start 07/15/16 at 00:00 Aspirin (Aspirin) 81 mg DAILY PO Last administered on 07/19/16 09:22; Admin Dose 81 MG; Start 07/15/16 at 09:00 Nitroglycerin (Nitroglycerin (Sl Tab) 0.4 Mg) 1 tab Q5M PRN SL CHEST PAIN; Start 07/15/16 at 00:00 Enoxaparin Sodium (Lovenox) 40 mg DAILY SC Last administered on 07/19/16 09:35 ; Admin Dose 40 MG; Start 07/15/16 at 09:00 Atorvastatin Calcium (Lipitor) 20 mg HS PO Last administered on 07/18/16 20:46 ; Admin Dose 20 MG; Start 07/15/16 at 21:00 Lorazepam (Ativan) 1 mg Q3 PRN IV ANXIETY Last administered on 07/18/16 16:33 ; Admin Dose 1 MG; Start 07/15/16 at 23:30 Zolpidem Tartrate (Ambien) 10 mg HS PRN PO INSOMNIA Last administered on 00:00; Admin Dose 10 MG; Start 07/15/16 at 23:30 Acetaminophen/ Butalbital/ Caffeine (Fioricet) 2 tab Q4H PRN PO PAIN Last administered on 07/17/16 20:29; Admin Dose 2 TAB; Start 07/17/16 at 17:30; Status Future Hold Ketorolac Tromethamine (Toradol) 30 mg Q6H PRN IV PAIN Last administered on 09:23; Admin Dose 30 MG; Start 07/17/16 at 17:30; Stop 07/20/16 at 17:29 Senna (Senokot) 2 tab DAILY PRN PO CONSTIPATION Last administered on 07/18/16 20:46; Admin Dose 2 TAB; Start 07/17/16 at 23:30 Lactulose (Enulose) 20 gm Q6H PRN PO CONSTIPATION; Start 07/19/16 at 11:00; Status DAWIT YANCEY MD Jul 19, 2016 10:57
--- NOTE | 2016-07-19 10:58 | PDOCDIS ---
Discharge Instructions CONDITION Patient Condition: Good HOME CARE INSTRUCTIONS: Diet Instructions: Regular ACTIVITY: Activity Restrictions: Slowly Increase Activity Rest between Activity Avoid heavy lifting Avoid Heavy Housework FOLLOW UP/APPOINTMENTS Appointments Follow up with her own PMD through HMO insurance in 1-2 week after discharge DAWIT KAY MD Jul 19, 2016 10:58
[2016-07-19] MEDS ORDERED: IMIT25 PO (10:59)
[2016-07-19] MEDS ORDERED: LACTULOSE 30ML CUP PO PRN (11:00)
[2016-07-19] MEDS ORDERED: SUMATRIPTAN 25 MG TAB PO ONE ×2 (12:00→21:00)
[2016-07-19 12:34] LABS: BASOPHIL # 0.1 10^3/ul (0.0-0.1); BASOPHILS % 0.7 % (0.0-2.0); EOSINOPHILS # 0.2 10^3/ul (0.0-0.5); EOSINOPHILS % 2.2 % (0.0-7.0); LYMPHOCYTES # 1.9 10^3/ul (0.8-2.9); LYMPHOCYTES % 26.3 % (15.0-51.0); MEAN CORPUSCULAR HEMOGLOBIN 32.4 pg (29.0-33.0); MEAN CORPUSCULAR HGB CONC 33.4 g/dl (32.0-37.0); MEAN CORPUSCULAR VOLUME 96.8 fl (82.0-101.0); MONOCYTE # 0.4 10^3/ul (0.3-0.9); MONOCYTES % 5.1 % (0.0-11.0); NEUTROPHIL # 4.7 10^3/ul (1.6-7.5); NEUTROPHILS % 65.7 % (39.0-77.0); PLATELET COUNT 241 10^3/UL (140-440); RED BLOOD COUNT 4.34 10^6/ul (4.20-5.40); RED CELL DISTRIBUTION WIDTH 12.8 % (11.5-14.5); UNCORRECTED WBC 7.1 10^3/ul (4.8-10.8); WHITE BLOOD COUNT 7.1 10^3/ul (4.8-10.8)
[2016-07-19 12:37] LABS: CONDITION 1
[2016-07-19 12:45] LABS: POTASSIUM 4.7 mmol/L (3.5-5.1)
[2016-07-19 12:47] LABS: CREATININE 0.95 mg/dl (0.44-1.00)
[2016-07-19 12:48] LABS: CALCIUM 9.9 mg/dl (8.4-10.2)
[2016-07-19] MEDS: ATORVASTATIN 20 MG TAB PO SCH (20:58)
[2016-07-19] MEDS: ZOLPIDEM 5 MG TAB PO PRN (22:46)
[2016-07-20] VITALS (10 sets, daily range): BP systolic 96–122; BP diastolic 58–66; PULSE 59–92; RESP 18–20
[2016-07-20] MEDS: ASPIRIN 81 MG TAB PO SCH (09:55)
[2016-07-20] MEDS: ENOXAPARIN 40 MG/0.4 ML SYG SC SCH (10:00)
[2016-07-20 10:38] LABS: BASOPHILS % 0.4 % (0.0-2.0); EOSINOPHILS # 0.1 10^3/ul (0.0-0.5); EOSINOPHILS % 2.2 % (0.0-7.0); HEMATOCRIT 41.7 % (37.0-47.0); HEMOGLOBIN 14.2 g/dl (12.0-16.0); LYMPHOCYTES # 1.4 10^3/ul (0.8-2.9); LYMPHOCYTES % 21.8 % (15.0-51.0); MEAN CORPUSCULAR HEMOGLOBIN 32.4 pg (29.0-33.0); MEAN CORPUSCULAR HGB CONC 34.1 g/dl (32.0-37.0); MEAN CORPUSCULAR VOLUME 95.2 fl (82.0-101.0); MEAN PLATELET VOLUME 9.8 fl (7.4-10.4); MONOCYTE # 0.4 10^3/ul (0.3-0.9); MONOCYTES % 5.5 % (0.0-11.0); NEUTROPHIL # 4.6 10^3/ul (1.6-7.5); NEUTROPHILS % 70.1 % (39.0-77.0); PLATELET COUNT 223 10^3/UL (140-440); RED BLOOD COUNT 4.38 10^6/ul (4.20-5.40); RED CELL DISTRIBUTION WIDTH 12.8 % (11.5-14.5); UNCORRECTED WBC 6.6 10^3/ul (4.8-10.8); WHITE BLOOD COUNT 6.6 10^3/ul (4.8-10.8)
[2016-07-20 10:46] LABS: CONDITION 1
[2016-07-20 10:49] LABS: POTASSIUM 4.5 mmol/L (3.5-5.1)
[2016-07-20 10:51] LABS: CREATININE 0.86 mg/dl (0.44-1.00)
[2016-07-20 10:52] LABS: CALCIUM 9.8 mg/dl (8.4-10.2)
--- NOTE | 2016-07-20 11:01 | PN ---
Date/Time of Note Date/Time of Note DATE: 07/20/16 TIME: 10:57 Assessment/Plan VTE Prophylaxis VTE Prophylaxis Intervention: SCD's Lines/Catheters IV Catheter Type (from Nrsg): Saline Lock Urinary Cath still in place: No Assessment/Plan Assessment/Plan 1. Chest pain. stress test negative 2. Cephalgia. likely migraine complicated , MRI brain negative 3. Dyslipidemia. Patient was started on statin medication MRI brain negative, lactulsoe for constipation- no BM yet will order CT C sp ine for RUE radicular pain Imitrex 25 mg BID prn migraine Ibuprofen prn pain, fever downgrade to med/surge floor Subjective 24 Hr Interval Summary Free Text/Dictation C/o headache, RUE pain, and tingling, numbness, Has not had a BM yet Exam/Review of Systems Vital Signs Vitals Vital Signs Date Time Temp Pulse Resp B/P Pulse Ox O2 Delivery O2 Flow Rate FiO2 07/20/16 08:11 64 07/20/16 07:24 98.2 18 111/58 100 07/16/16 16:00 Room Air Intake and Output 07/19/16 07/19/16 07/20/16 15:00 23:00 07:00 Intake Total 550 ml 280 ml Balance 550 ml 280 ml Exam Constitutional: alert Psych: no complaints Head: normocephalic Eyes: nl conjunctiva ENMT: nl external ears & nose Neck: supple Respiratory: clear to auscultation Gastrointestinal: soft Results Result Diagram: 07/20/16 1004 07/19/16 1216 Results 24 hrs Laboratory Tests Test 07/19/16 12:16 07/20/16 10:04 Anion Gap 17 H Basophils # 0.1 0.0 Basophils % 0.7 0.4 Blood Urea Nitrogen 14 Calcium Level 9.9 Carbon Dioxide Level 30 Chloride Level 102 Creatinine 0.95 Eosinophils # 0.2 0.1 Eosinophils % 2.2 2.2 Glucose Level 85 Hematocrit 42.0 41.7 Hemoglobin 14.0 14.2 Lymphocytes # 1.9 1.4 Lymphocytes % 26.3 21.8 Mean Corpuscular Hemoglobin 32.4 32.4 Mean Corpuscular Hemoglobin Concent 33.4 34.1 Mean Corpuscular Volume 96.8 95.2 Mean Platelet Volume 10.0 9.8 Monocytes # 0.4 0.4 Monocytes % 5.1 5.5 Neutrophils # 4.7 4.6 Neutrophils % 65.7 70.1 Nucleated Red Blood Cells # 0.0 0.0 Nucleated Red Blood Cells % 0.0 0.0 Platelet Count 241 223 Potassium Level 4.7 Red Blood Count 4.34 4.38 Red Cell Distribution Width 12.8 12.8 Sodium Level 144 White Blood Count 7.1 # 6.6 Medications Medications Current Medications Ondansetron HCl (Zofran Inj) 4 mg Q6H PRN IV NAUSEA AND/OR VOMITING Last administered on 07/18/16 11:45; Admin Dose 4 MG; Start 07/15/16 at 00:00 Aspirin (Aspirin) 81 mg DAILY PO Last administered on 07/20/16 09:55; Admin Dose 81 MG; Start 07/15/16 at 09:00 Nitroglycerin (Nitroglycerin (Sl Tab) 0.4 Mg) 1 tab Q5M PRN SL CHEST PAIN; Start 07/15/16 at 00:00 Enoxaparin Sodium (Lovenox) 40 mg DAILY SC Last administered on 07/20/16 10:00 ; Admin Dose 40 MG; Start 07/15/16 at 09:00 Atorvastatin Calcium (Lipitor) 20 mg HS PO Last administered on 07/19/16 20:58 ; Admin Dose 20 MG; Start 07/15/16 at 21:00 Lorazepam (Ativan) 1 mg Q3 PRN IV ANXIETY Last administered on 07/18/16 16:33 ; Admin Dose 1 MG; Start 07/15/16 at 23:30 Zolpidem Tartrate (Ambien) 10 mg HS PRN PO INSOMNIA Last administered on 22:46; Admin Dose 10 MG; Start 07/15/16 at 23:30 Acetaminophen/ Butalbital/ Caffeine (Fioricet) 2 tab Q4H PRN PO PAIN Last administered on 07/17/16 20:29; Admin Dose 2 TAB; Start 07/17/16 at 17:30; Status Future Hold Ketorolac Tromethamine (Toradol) 30 mg Q6H PRN IV PAIN Last administered on 09:23; Admin Dose 30 MG; Start 07/17/16 at 17:30; Stop 07/20/16 at 17:29 Senna (Senokot) 2 tab DAILY PRN PO CONSTIPATION Last administered on 07/18/16 20:46; Admin Dose 2 TAB; Start 07/17/16 at 23:30 Lactulose (Enulose) 20 gm Q6H PRN PO CONSTIPATION Last administered on 11:37; Admin Dose 20 GM; Start 07/19/16 at 11:00 DAWIT KAY MD Jul 20, 2016 11:01
[2016-07-20] MEDS: ATORVASTATIN 20 MG TAB PO SCH (20:47)
--- NOTE | 2016-07-20 22:20 | RADRPT ---
PROCEDURE: CT cervical spine without contrast. CLINICAL INDICATION: Bilateral upper extremity radicular pain TECHNIQUE: CT of the cervical spine without contrast was performed. Axial images were obtained th rough the cervical spine and reformatted at 1.25 mm slice thickness. Coronal and sagittal images wer e reformatted. Exam CTDIvol = 23.07 mGy and DLP = 435.14 mGy-cm. COMPARISON: None available. FINDINGS: Vertebral bodies: Straightening of the normal lordosis is present. Stature is preserved at every le luis eduardo. There is normal mineralization and trabeculation. No lytic or blastic lesions are present. Th e C1 ring is intact. The predental space is normal in width Central canal and cervical spinal cord: No abnormal density within the spinal cord is evident and no intraspinal masses are delineated. C2-3: The disk is within normal limits. The facet joints are normal. The uncovertebral joints and f oramina are unremarkable. C3-4: The disk is within normal limits. The facet joints are normal. The uncovertebral joints and foramina are unremarkable. C4-5: Trace disk narrowing with minimal anterior spondylosis but no disk bulge or protrusion. Mini mal bilateral facet arthropathy. The uncovertebral joints and foramina are unremarkable. C5-6: Mild disk space narrowing with anterior spondylosis and a small 2 mm osteophyte and disk comp chani without significant central stenosis. Minimal bilateral facet arthropathy. The uncovertebral marie ints and foramina are unremarkable. C6-7: Preservation of disk stature with a tiny 2 mm posterior protrusion not causing central steno sis. The facet joints are normal. The uncovertebral joints and foramina are unremarkable. C7-T1: The disk is within normal limits. Moderate to severe left facet arthropathy is present the r ight facet joint is unremarkable. The uncovertebral joints and foramina are unremarkable. Non spine related findings: Mild scarring within the lung apices is noted RPTAT:HJJR IMPRESSION: 1. Mild degenerative disk narrowing with a small osteophyte and disk complex at C5-6 not causing si gnificant central stenosis. 2. Small posterior protrusion at C6-7 without associated stenosis. 3. No significant foraminal stenosis at any level. 4. Moderate to severe left C7-T1 facet arthropathy. 5. The lordosis is mildly straightened which may be from positioning but cannot exclude muscle spas m. Shen Fu, Physician Date Time Electronically viewed and signed by Shen Fu, Physician on 07/20/2016 22:20 JR/
[2016-07-21] MEDS: SUMATRIPTAN 25 MG TAB PO PRN ×4 (00:14→23:31)
[2016-07-21] MEDS: ZOLPIDEM 5 MG TAB PO PRN ×2 (00:18→23:30)
[2016-07-21 07:11] VITALS: BP 105/56
[2016-07-21] MEDS: IBUPROFEN 600 MG TAB PO PRN ×2 (09:03→18:22)
[2016-07-21] MEDS: ASPIRIN 81 MG TAB PO SCH (09:03)
[2016-07-21] MEDS: ENOXAPARIN 40 MG/0.4 ML SYG SC SCH (09:15)
--- NOTE | 2016-07-21 10:22 | PN ---
Date/Time of Note Date/Time of Note DATE: 07/21/16 TIME: 10:20 Assessment/Plan VTE Prophylaxis VTE Prophylaxis Intervention: SCD's Lines/Catheters IV Catheter Type (from Nrsg): Saline Lock Urinary Cath still in place: No Assessment/Plan Assessment/Plan 1. Chest pain. stress test negative 2. Cephalgia. likely migraine complicated , MRI brain negative 3. Dyslipidemia. 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 Exam/Review of Systems Vital Signs Vitals Vital Signs Date Time Temp Pulse Resp B/P Pulse Ox O2 Delivery O2 Flow Rate FiO2 07/21/16 07:11 97.8 73 105/56 100 07/20/16 20:00 19 Intake and Output 07/20/16 07/20/16 07/21/16 15:00 23:00 07:00 Intake Total 400 ml 500 ml Balance 400 ml 500 ml Exam Constitutional: alert Psych: no complaints Head: normocephalic Eyes: nl conjunctiva ENMT: nl external ears & nose Neck: supple Respiratory: clear to auscultation Gastrointestinal: soft Results Result Diagram: 07/20/16 1004 07/20/16 1004 Medications Medications Current Medications Ondansetron HCl (Zofran Inj) 4 mg Q6H PRN IV NAUSEA AND/OR VOMITING Last administered on 07/18/16 11:45; Admin Dose 4 MG; Start 07/15/16 at 00:00 Aspirin (Aspirin) 81 mg DAILY PO Last administered on 07/21/16 09:03; Admin Dose 81 MG; Start 07/15/16 at 09:00 Nitroglycerin (Nitroglycerin (Sl Tab) 0.4 Mg) 1 tab Q5M PRN SL CHEST PAIN; Start 07/15/16 at 00:00 Enoxaparin Sodium (Lovenox) 40 mg DAILY SC Last administered on 07/21/16 09:15 ; Admin Dose 40 MG; Start 07/15/16 at 09:00 Atorvastatin Calcium (Lipitor) 20 mg HS PO Last administered on 07/20/16 20:47 ; Admin Dose 20 MG; Start 07/15/16 at 21:00 Lorazepam (Ativan) 1 mg Q3 PRN IV ANXIETY Last administered on 07/18/16 16:33 ; Admin Dose 1 MG; Start 07/15/16 at 23:30 Zolpidem Tartrate (Ambien) 10 mg HS PRN PO INSOMNIA Last administered on 00:18; Admin Dose 10 MG; Start 07/15/16 at 23:30 Senna (Senokot) 2 tab DAILY PRN PO CONSTIPATION Last administered on 07/18/16 20:46; Admin Dose 2 TAB; Start 07/17/16 at 23:30 Lactulose (Enulose) 20 gm Q6H PRN PO CONSTIPATION Last administered on 11:37; Admin Dose 20 GM; Start 07/19/16 at 11:00 Sumatriptan Succinate (Imitrex) 25 mg Q12H PRN PO migraine headache Last administered on 07/21/16 00:14; Admin Dose 25 MG; Start 07/20/16 at 11:30 Ibuprofen (Motrin) 600 mg Q8H PRN PO headache, fever, Pain Last administered on 07/21/16 09:03; Admin Dose 600 MG; Start 07/20/16 at 11:00 DAWIT KAY MD Jul 21, 2016 10:22
[2016-07-21 11:50] VITALS: BP 121/77; RESP 18
[2016-07-21 21:33] VITALS: BP 122/72; PULSE 66; RESP 18
[2016-07-21] MEDS: ATORVASTATIN 20 MG TAB PO SCH (21:37)
--- NOTE | 2016-07-22 01:51 | CONS ---
DATE OF ADMISSION: 07/14/2016 DATE OF CONSULTATION: 07/21/2016 TYPE OF CONSULTATION: Neurology. Thank you, Dr. Portillo, for your kind referral for evaluation of headaches. HISTORY OF PRESENT ILLNESS: The patient is a 55-year-old lady who was transferred from [facility] with complaints of chest pain. Her SPECT scan was within normal limits. Patient stated that since approximately January last year she has been suffering from "burning in her brain". She describes it as a headache, predominantly right-sided frontotemporal and bilateral occipital pain, burning with frequent severe sharp shooting components. This pain is associated with nausea, dizziness and sensitivity to light. At times she has seen bright spots in front of her eyes with headache as well. She stated that she used to have migraines which were different in quality in the past. She feels that the headache is worsening in the recent days when she had her chest pain as well. She thinks that when it started in January of last year she also had pain in the right upper and lower extremities and later she noticed some rash on her palate and thought that she likely had pain related to the herpes zoster. She stated that from time to time she may get areas of herpes, usually in the buttocks. Since January pains in the right upper and lower extremities resolved, but lately she may get sharp shooting type of pains sporadically and randomly in upper or lower extremities bilaterally. She stated that she tries herbal treatments at home, not taking any medication except Advil. She also tried some colonic cleansing, but apparently it did not help much. The patient stated that here in the hospital, she is getting tramadol which does not help the headache, but she was given Imitrex 25 mg, which seemed to be more helpful for pain, but usually it alleviates pain for about a couple of hours and then pain comes back. In the hospital, patient had already an MRI of the brain which shows mild nonspecific white matter abnormality, otherwise no acute abnormality. She had also cervical spinal CAT scan which shows degenerative disk narrowing of small osteophyte and disk complex at C5-C6, mild small posterior protrusion at C6-C7, moderate to severe left C7-T1 facet arthropathy on the left. CURRENT MEDICATIONS: 1. Sumatriptan is a mention 25. 2. Motrin 600. 3. Senokot. 4. Lactulose. 5. Lorazepam. 6. Ambien. 7. Lipitor 20. 8. Aspirin 81. 9. Lovenox for DVT prevention. SOCIAL HISTORY: No alcohol, tobacco, drug use. FAMILY HISTORY: Noncontributory. REVIEW OF SYSTEMS: All pertinent positives included in the above history of present illness. PHYSICAL EXAMINATION: VITAL SIGNS: Temperature 98.5, pulse 77, blood pressure 121/77, respirations 18. GENERAL: She is not in acute distress, lying in bed. HEENT: Normocephalic, atraumatic head. Severe tenderness to palpation in bilateral superior nuchal lines, more severe on the right. NECK: Supple. No meningeal signs. NEUROLOGIC: Patient is awake, alert, and oriented x3 with fluent speech. Cranial nerve examination shows intact visual jimenez bilaterally. Pupils round , reactive to light from 3 to 2 mm bilaterally. Funduscopic examination shows distinct disk margins. I checked the right eye. The patient was in discomfort secondary to photophobia and was closing her eyes. Symmetrical face. Preserved facial strength and sensation. Tongue is in midline. Palate elevates symmetrically. Motor strength examination preserved in all extremities. Normal bulk, tone, and strength. Sensory examination shows diminution of vibration in bilateral feet and hands and diminished pinprick in bilateral hands. Deep tendon reflexes 2+ throughout. Downgoing toes bilaterally. Coordination preserved on [id number] testing. No dysmetria or tremor. Gait was not checked. The patient does not have any complaints of gait abnormality. IMPRESSION: Chronic headaches. Headaches have features of migraine given nausea, dizziness, photophobia and seeing spots in front of the eyes with headache as well as features of tension type headache with sensitivity of scalp to touch. Patient stated that Imitrex in small dose helps her pain, but only transiently I will increase dose of Imitrex. Usually it could be given up to 100 mg at once and not more than 200 per day. Prophylactic treatment for chronic headache discussed with the patient. I advised her about Nortriptyline use or also possibilities of use of Topamax or even treat chronic migraines with Botox injections. The patient does not want to start any prophylactic treatment currently, but wants to further investigate and look up those medications. She was telling me that she has dental caries since last November, needed to extract the tooth and she is asking if it could be the reason for her headaches and "burning of the brain." She was asking me if she could have mycotic aneurysms because of the dental problems. I do not think that it contributes to her headaches. Apparently patient is looking up and educating herself regarding all rare causes of headaches from the Internet. Thank you very much for this interesting consultation. I will increase her Imitrex. She could see a neurologist. I do not know if I take her insurance or not, but she would benefit from seeing a neurologist on an outpatient basis for possible prophylactic headache treatment. Thank you very much for this interesting consultation. Dictated By: BONI CABRERA/TEA Conf#: [id number] DID#: [id number]
[2016-07-22 08:02] VITALS: BP 108/70; RESP 19
[2016-07-22] MEDS: IBUPROFEN 600 MG TAB PO PRN (08:35)
[2016-07-22] MEDS: ASPIRIN 81 MG TAB PO SCH (08:35)
[2016-07-22] MEDS: ENOXAPARIN 40 MG/0.4 ML SYG SC SCH (08:43)
--- NOTE | 2016-07-22 11:44 | PN ---
Date/Time of Note Date/Time of Note DATE: 07/22/16 TIME: 11:40 Assessment/Plan VTE Prophylaxis VTE Prophylaxis Intervention: LMWH Lines/Catheters IV Catheter Type (from Nrs): Saline Lock Urinary Cath still in place: No Assessment/Plan Assessment/Plan 1. Chest pain. stress test negative 2. Cephalgia. likely migraine complicated , MRI brain negative , CT C spine showed DJD with narrowing of cervical canal 3. Dyslipidemia. Patient was started on statin medication MRI brain negative, lactulose for constipation CT C spine showed mild cervical canal stenosis, with DJD still c/o headache, S/p neurology consult- imitrex has been increased to 50mg PO Q 2 hr prn Ibuprofen prn pain, fever downgrade to med/surge floor Subjective 24 Hr Interval Summary Free Text/Dictation pt c/o headache, Seen by neurology and Imitrex dose has been increased Exam/Review of Systems Vital Signs Vitals Vital Signs Date Time Temp Pulse Resp B/P Pulse Ox O2 Delivery O2 Flow Rate FiO2 07/22/16 08:02 98.2 69 19 108/70 98 07/21/16 21:33 Room Air Intake and Output 07/21/16 07/21/16 07/22/16 15:00 23:00 07:00 Intake Total 400 ml 500 ml Balance 400 ml 500 ml Exam Constitutional: alert, mild distress due to headache Psych: no complaints Head: normocephalic Eyes: nl conjunctiva ENMT: nl external ears & nose Neck: supple Respiratory: clear to auscultation Gastrointestinal: soft Results Result Diagram: 07/20/16 1004 07/20/16 1004 Medications Medications Current Medications Ondansetron HCl (Zofran Inj) 4 mg Q6H PRN IV NAUSEA AND/OR VOMITING Last administered on 07/18/16 11:45; Admin Dose 4 MG; Start 07/15/16 at 00:00 Aspirin (Aspirin) 81 mg DAILY PO Last administered on 07/22/16 08:35; Admin Dose 81 MG; Start 07/15/16 at 09:00 Nitroglycerin (Nitroglycerin (Sl Tab) 0.4 Mg) 1 tab Q5M PRN SL CHEST PAIN; Start 07/15/16 at 00:00 Enoxaparin Sodium (Lovenox) 40 mg DAILY SC Last administered on 07/22/16 08:43 ; Admin Dose 40 MG; Start 07/15/16 at 09:00 Atorvastatin Calcium (Lipitor) 20 mg HS PO Last administered on 07/21/16 21:37 ; Admin Dose 20 MG; Start 07/15/16 at 21:00 Lorazepam (Ativan) 1 mg Q3 PRN IV ANXIETY Last administered on 07/18/16 16:33 ; Admin Dose 1 MG; Start 07/15/16 at 23:30 Zolpidem Tartrate (Ambien) 10 mg HS PRN PO INSOMNIA Last administered on 23:30; Admin Dose 10 MG; Start 07/15/16 at 23:30 Senna (Senokot) 2 tab DAILY PRN PO CONSTIPATION Last administered on 07/18/16 20:46; Admin Dose 2 TAB; Start 07/17/16 at 23:30 Lactulose (Enulose) 20 gm Q6H PRN PO CONSTIPATION Last administered on 11:37; Admin Dose 20 GM; Start 07/19/16 at 11:00 Ibuprofen (Motrin) 600 mg Q8H PRN PO headache, fever, Pain Last administered on 07/22/16 08:35; Admin Dose 600 MG; Start 07/20/16 at 11:00 Sumatriptan Succinate (Imitrex) 50 mg Q2H PRN PO migraine headache Last administered on 07/21/16 23:31; Admin Dose 50 MG; Start 07/21/16 at 23:00 DAWIT KAY MD Jul 22, 2016 11:44
[2016-07-22] MEDS ORDERED: SUMA50TA11 PO (12:01)
[2016-07-22] MEDS: SUMATRIPTAN 25 MG TAB PO PRN (12:42)
[2016-07-22 13:10] VITALS: BP 113/67; PULSE 5; RESP 20
[2016-07-22 20:14] VITALS: BP 135/78; PULSE 74; RESP 18
[2016-07-22] MEDS: ATORVASTATIN 20 MG TAB PO SCH (21:34)
[2016-07-23] MEDS: ZOLPIDEM 5 MG TAB PO PRN (01:14)
[2016-07-23] MEDS: SUMATRIPTAN 25 MG TAB PO PRN ×2 (01:14→13:18)
[2016-07-23 07:56] VITALS: BP 102/55; RESP 16
[2016-07-23] MEDS: SENNA TAB PO PRN (09:51)
[2016-07-23] MEDS: ASPIRIN 81 MG TAB PO SCH (09:51)
[2016-07-23] MEDS: ENOXAPARIN 40 MG/0.4 ML SYG SC SCH (09:58)
--- NOTE | 2016-07-23 12:30 | PN ---
Date/Time of Note Date/Time of Note DATE: 07/23/16 TIME: 12:29 Assessment/Plan VTE Prophylaxis VTE Prophylaxis Intervention: SCD's Lines/Catheters IV Catheter Type (from Nrsg): Saline Lock Urinary Cath still in place: No Assessment/Plan Assessment/Plan 1. Chest pain. stress test negative 2. Cephalgia. likely migraine complicated , MRI brain negative , CT C spine showed DJD with narrowing of cervical canal 3. Dyslipidemia. Patient was started on statin medication MRI brain negative, lactulose for constipation CT C spine showed mild cervical canal stenosis, with DJD still c/o headache, S/p neurology consult- imitrex has been increased to 50mg PO Q 2 hr prn , pt has complicated migraine Ibuprofen prn pain, fever downgrade to med/surge floor Subjective 24 Hr Interval Summary Free Text/Dictation pt did not leave yesterday due to persistent headache Exam/Review of Systems Vital Signs Vitals Vital Signs Date Time Temp Pulse Resp B/P Pulse Ox O2 Delivery O2 Flow Rate FiO2 07/23/16 07:56 98.3 72 16 102/55 98 07/22/16 20:14 Room Air Intake and Output 07/22/16 07/22/16 07/23/16 15:00 23:00 07:00 Intake Total 400 ml Balance 400 ml Exam Constitutional: alert, mild distress due to headache Psych: no complaints Head: normocephalic Eyes: nl conjunctiva ENMT: nl external ears & nose Neck: supple Respiratory: clear to auscultation Gastrointestinal: soft Results Result Diagram: 07/20/16 1004 07/20/16 1004 Medications Medications Current Medications Ondansetron HCl (Zofran Inj) 4 mg Q6H PRN IV NAUSEA AND/OR VOMITING Last administered on 07/18/16 11:45; Admin Dose 4 MG; Start 07/15/16 at 00:00 Aspirin (Aspirin) 81 mg DAILY PO Last administered on 07/23/16 09:51; Admin Dose 81 MG; Start 07/15/16 at 09:00 Nitroglycerin (Nitroglycerin (Sl Tab) 0.4 Mg) 1 tab Q5M PRN SL CHEST PAIN; Start 07/15/16 at 00:00 Enoxaparin Sodium (Lovenox) 40 mg DAILY SC Last administered on 07/23/16 09:58 ; Admin Dose 40 MG; Start 07/15/16 at 09:00 Atorvastatin Calcium (Lipitor) 20 mg HS PO Last administered on 07/22/16 21:34 ; Admin Dose 20 MG; Start 07/15/16 at 21:00 Lorazepam (Ativan) 1 mg Q3 PRN IV ANXIETY Last administered on 07/18/16 16:33 ; Admin Dose 1 MG; Start 07/15/16 at 23:30 Zolpidem Tartrate (Ambien) 10 mg HS PRN PO INSOMNIA Last administered on 01:14; Admin Dose 10 MG; Start 07/15/16 at 23:30 Senna (Senokot) 2 tab DAILY PRN PO CONSTIPATION Last administered on 07/23/16 09:51; Admin Dose 2 TAB; Start 07/17/16 at 23:30 Lactulose (Enulose) 20 gm Q6H PRN PO CONSTIPATION Last administered on 11:37; Admin Dose 20 GM; Start 07/19/16 at 11:00 Ibuprofen (Motrin) 600 mg Q8H PRN PO headache, fever, Pain Last administered on 07/22/16 08:35; Admin Dose 600 MG; Start 07/20/16 at 11:00 Sumatriptan Succinate (Imitrex) 50 mg Q2H PRN PO migraine headache Last administered on 07/23/16 01:14; Admin Dose 50 MG; Start 07/21/16 at 23:00 DAWIT KAY MD Jul 23, 2016 12:30
--- NOTE | 2016-07-25 17:06 | DS ---
DATE OF ADMISSION: 07/14/2016 DATE OF DISCHARGE: 07/23/2016 FINAL DISCHARGE DIAGNOSES: 1. Acute complicated migraine causing multiple symptoms. 2. Atypical chest pain. Stress test negative. 3. Right upper extremity radiculopathy with weakness. Patient is ruled out for acute stroke by neg ative MRI. 4. 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 5. Dyslipidemia. CONSULTATIONS DONE DURING THIS HOSPITALIZATION: Neurology consult, Dr. Norman. PROCEDURES PERFORMED DURING THIS HOSPITALIZATION: None. IMAGING STUDIES DONE DURING THIS HOSPITALIZATION: 1. Patient had a Lexiscan myocardial perfusion stress test negative. 2. Patient had MRI brain negative for any acute stroke. 3. Patient had a carotid Doppler ultrasound negative for any carotid artery stenosis. 4. Patient had a CT C-spine without contrast, which revealed cervical spine stenosis with severe DJ D of her cervical spine. HOSPITAL COURSE: This is a 55-year-old female with a past medical history of a section, hi story of previous headache, who presented with a complaint of intermittent headache with blurry visi on for the last 2 to 3 months. Her symptoms started in February 2016. She was seen at another hospit al and was discharged home. She presented back with similar symptoms here. Also was complaining of chest pain. She got admitted to the telemetry floor for atypical chest pain and stroke-like sympto ms. She had initial workup done including a CT head without contrast negative. She was evaluated b y cardiology and had a stress test done, which was negative for any perfusion defects. Her ejection fraction was normal. She was noted to have dyslipidemia and has been started on low dose statin fo r hyperlipidemia. She had a neurological evaluation done because of her chronic complicated migrain e-like symptoms, which recommended to increase her Topamax. She was also offered to have a prophylac tic treatment with Topamax that she refused. She was continued on Imitrex 50 mg q.2h. p.r.n. migra ine headache. She symptomatically was better, but she was kept in the hospital because she was cons tantly complaining of this headache with blurry vision. She had a physical therapy evaluation, soci al service evaluation, and then she gets discharged home with a prescription of the Imitrex 50 mg p. o. q.2h. p.r.n. moderate to severe migraine headache. DISPOSITION: To home. DISCHARGE CONDITION: Stable and improved compared to admission. DISCHARGE ACTIVITIES: As tolerated. Slowly resume to the normal baseline activity. DISCHARGE DIET: Regular diet. DISCHARGE MEDICATIONS: As per medical reconciliation. She is given a prescription of Imitrex 50 mg 1 tablet every 2 hours p.r.n. moderate to severe migraine headache. It is unsure if her insurance is going to cover this prescription or not. The family preservation caseworker already set up her appointment with ekta perez as outpatient upon discharge. DISCHARGE FOLLOWUP AND INSTRUCTIONS: 1. The patient is to follow up with her own primary care doctor through her HMO insurance 1 to 2 we eks after discharge. 2. The patient is to follow up with neurology as outpatient in 1 to 2 weeks after discharge. She has been explained about the discharge plan and followup instructions. She understood and verbalesia sellersed understanding. Dictated By: DAWIT KAY MD, KP/TEA Conf#: [id number] DID#: [id number]
== END 2016-07-23 13:30 | disposition home or self-care (01) | DRG 313 ==
LOC: TEL 23:06 → MS2 07-22 13:24
PROVIDERS: ADMIT Hospitalist; ATTEND Hospitalist
DX: R07.89 Other chest pain (principal); E03.9 Hypothyroidism, unspecified; E78.5 Hyperlipidemia, unspecified; G43.109 Migraine with aura, not intractable, without status migrainosus; M47.22 Other spondylosis with radiculopathy, cervical region; K59.00 Constipation, unspecified; R06.02 Shortness of breath; R05 Cough
CPT/HCPCS: 70450; 70553; 72125; 78452; 80048; 80053; 80061; 82550; 82553; 84436; 84439; 84443; 84480; 84481; 84484; 85025; 93017; 93306; 93880; A9500; A9505; J1650; J1885; J2060; J2270; J2405; J2785; J3030; J7030